=== PATIENT | female | born 1945 | race African-American/Black ===

== ENCOUNTER 2016-05-03 18:45 | Inpatient (IN) | payer OTHER, MEDICARE ==
[~2016-05-03] VITALS: Ht 160 cm; Wt 117.9 kg
--- NOTE | ~2016-05-03 | EKG ---
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1945 Requested By: Syed Pham Order Number: [id number] MD: Edmundo Henson Measurements Intervals [place] Rate: 66 P: 47 PA: 209 QRS: -41 QRSD: 109 T: 15 QT: 403 QTc: 423 Interpretive Statements Sinus rhythm Left anterior fascicular block Abnormal R-wave progression, late transition Left ventricular hypertrophy No previous ECG available for comparison Electronically Signed On 05-04-2016 8:53:32 SEATER GRINDER by Edmundo Henson [email or web address] <ELECTRONICALLY SIGNED> By: Edmundo Henson MD, [facility] 05/04/16 0853 23 23 Edmundo Henson MD, [facility] /EPI
--- NOTE | ~2016-05-03 | 2DMMODE ---
[facility] [place] [address] 2 D/M-MODE ECHOCARDIOGRAM Name: SANCHEZ DUDLEY Room #: 450-P [facility] IN ..#: [id number] Admission: 05/03/16 Attend Phys: Blossom Stone Discharge: Date of : 43 Date of Service: 05/04/16 0838 Report #: [id number] THIS REPORT FOR: //name// Transthoracic Echocardiography Ordering physician: Marilynn Barajas Referring physician: Demi Martinez Theresa L. Marble Coper: TABITHA Fontenot Indications/History: DM, HLP, HTN. BP: 152 / HR: 57bpm Height: 62in Weight: 259.5lb 62 Study data: M-mode, complete 2D, complete spectral Doppler, and color Doppler. Location: Bedside. Routine. Image quality was good. 2D measurements Normal Normal LVID ED 53.9mm 36-57 IVS ED 10.3mm 6-11 LVID ES 33.9mm 23-40 LVPW ED 9mm 6-11 LA volume 33ml/m2 16-28 AoRoot diam 31.1mm 21-37 index ED LVOT diameter 23mm 18-23 Findings: Left ventricle: The cavity size was normal. Wall thickness was normal. Systolic function was normal. The estimated ejection fraction was in the range of 55% to 60%. Wall motion was normal. Right ventricle: The cavity size was normal. Systolic function was normal. Right atrium: The atrium was at the upper limits of normal in size. Left atrium: The atrium was at the upper limits of normal in size. Volume index: 33ml/m2 (S). Aortic valve: Trileaflet; mildly calcified leaflets. Doppler: There was no stenosis. No regurgitation. Peak velocity: 142.2cm/s (S). [facility] [address] [place] [address] 2 D/M-MODE ECHOCARDIOGRAM Name: SANCHEZ DUDLEY Room #: 450-P [facility] M.R.#: [id number] Admission: 05/03/16 Attend Phys: Blossom Stone Discharge: Date of : 43 Date of Service: 05/04/16 0838 Report #: [id number] Mitral valve: Mildly calcified annulus. Doppler: There was no evidence for stenosis. Trivial regurgitation. Peak E-wave velocity: 89.4cm/s. Peak gradient: 3.2mm Hg (D). Peak A-wave velocity: 81.3cm/s. Tricuspid valve: Structurally normal valve. Doppler: There was no evidence for stenosis. Trivial regurgitation. Regurgitant peak velocity: 259.9cm/s. Peak RV-RA gradient: 27mm Hg (S). Pulmonic valve: Structurally normal valve. Doppler: There was no evidence for stenosis. No regurgitation. Pericardium: There was no pericardial effusion. Aorta: Aortic root: The aortic root was normal in size. Pulmonary artery: Systolic pressure was estimated to be 37mm Hg. Systemic veins: Inferior vena cava: The vessel was dilated; the respirophasic diameter changes were in the normal range (= 50%). Conclusions 1. Left ventricle: The cavity size was normal. Wall thickness was normal. Systolic function was normal. The estimated ejection fraction was in the range of 55% to 60%. 2. Right atrium: The atrium was at the upper limits of normal in size. 3. Left atrium: The atrium was at the upper limits of normal in size. 4. Aortic valve: Trileaflet; mildly calcified leaflets. There was no stenosis. 5. Mitral valve: Mildly calcified annulus. Trivial regurgitation. 6. Tricuspid valve: Trivial regurgitation. 7. Pericardium, extracardiac: There was no pericardial effusion. <ELECTRONICALLY SIGNED> By: Cesar Miranda MD 05/04/16 1030 0838 Cesar Miranda MD /debra
[2016-05-03 18:45] VITALS: BP 132/103
[~2016-05-03 18:45] MED LIST: ADULT LOW DOSE81 MG PO; BENZONATATE200 MG PO; BOSENTAN PO; CARVEDILOL12.5 MG PO; CARVEDILOL25 MG PO; COLACE100 MG PO; CRESTOR5 MG PO; EYE ITCH RELIEF5 ML OPHTHALMIC; FEVERALL JR 32325 MG RECTAL; FIBER LAX625 MG PO; GLUCOPHAGE1000 MG PO; JANUVIA100 MG PO; LANSOPRAZOLE30 MG PO; LO-DOSE ASPIRIN81 M1; LOPERAMIDE 2 MG2 M1 PO; LORTAB 5 MG/5001 TA1 PO; LOSARTAN-HCTZ1 EAC1 PO; MOM PO; NIFEDIPINE ER90 M1 PO; POTASSIUM CHLO10 ME1 PO; TRACLEER125 MG; TRACLEER125 MG PO; VITAMIN B-12500 MCG PO
[2016-05-03] MEDS ORDERED: CRESTOR10 MG PO (18:59)
[2016-05-03] MEDS ORDERED: PANTOPRAZOLE SO40 M1 PO (19:01)
[2016-05-03 19:15] LABS: ABSOLUTE NEUTROPHILS 5.9 thou/uL (1.4-8.2); BASOPHILS 0.6 % (0.0-2.0); EOSINOPHILS 0.8 % (0.0-3.0); HEMATOCRIT 34.1 % (37.0-47.0); HEMOGLOBIN 11.1 gm/dL (12.0-15.0); LYMPHOCYTES 12.7 % (24.0-44.0); MCH 25.3 pg (26.0-34.0); MCHC 32.6 % (28.0-37.0); MCV 77.6 fL (80.0-100.0); MONOCYTES 8.7 % (1.0-8.0); PLATELET COUNT 223 thou/uL (150-400); POLYS 77.2 % (36.0-66.0); RBC 4.39 mil/uL (4.20-5.00); RDW 15.7 % (10.5-14.5); WBC 7.7 thou/uL (4.0-11.0)
[2016-05-03 19:16] LABS: MANUAL DIFF NO
[2016-05-03 19:22] LABS: CALCIUM 9.2 mg/dL (8.5-10.1)
[2016-05-03 19:28] LABS: ALBUMIN 3.5 g/dL (3.4-5.0); TOTAL BILIRUBIN 0.5 mg/dL (<0.1-1.0); TOTAL PROTEIN 7.6 g/dL (6.4-8.2)
[2016-05-03 20:33] VITALS: BP 157/58; BP 161/67
[2016-05-03 20:49] LABS: NT-PRO BRAIN NAT PEPTIDE 214 pg/mL (<300); TROPONIN-I < 0.04 ng/mL (<0.04-0.07)
[2016-05-03 20:54] VITALS: BP 151/55
[2016-05-04 00:20] VITALS: BP 128/50
[2016-05-04 04:24] VITALS: BP 129/45
[2016-05-04 07:15] VITALS: BP 152/62
[2016-05-04 08:15] LABS: HEMATOCRIT 32.7 % (37.0-47.0); HEMOGLOBIN 10.7 gm/dL (12.0-15.0); MCH 25.3 pg (26.0-34.0); MCHC 32.7 % (28.0-37.0); MCV 77.4 fL (80.0-100.0); RBC 4.23 mil/uL (4.20-5.00); RDW 15.7 % (10.5-14.5); WBC 5.5 thou/uL (4.0-11.0)
[2016-05-04 08:18] LABS: CREATININE 0.8 mg/dL (0.6-1.3); MAGNESIUM 2.2 mg/dL (1.8-2.4); POTASSIUM 3.5 mmol/L (3.5-5.1)
[2016-05-04 12:44] VITALS: BP 111/39
[2016-05-04 17:11] LABS: TSH 0.477 uIU/mL (0.450-4.500)
[2016-05-04 19:10] VITALS: BP 143/65
[2016-05-04 21:06] LABS: GLYCOHEMOGLOBIN (HGB A1C) 6.2 % (4.8-5.6)
[2016-05-05 03:57] VITALS: BP 146/65
[2016-05-05 09:08] VITALS: BP 183/67
[2016-05-05] MEDS ORDERED: OSELB75 PO (10:09)
[2016-05-05 11:19] VITALS: BP 183/67
== END 2016-05-05 11:40 | disposition home or self-care (01) | DRG 193 ==
LOC: ER 18:45 → EROBS 20:27 → 4W 20:40
PROVIDERS: Emergency Medicine; Nurse Practitioner
DX: J10.1 Influenza due to other identified influenza virus with other respiratory manifestations (principal); I50.33 Acute on chronic diastolic (congestive) heart failure; D64.9 Anemia, unspecified; E87.6 Hypokalemia; E11.9 Type 2 diabetes mellitus without complications; F32.9 Major depressive disorder, single episode, unspecified; G47.30 Sleep apnea, unspecified; E78.5 Hyperlipidemia, unspecified; I11.0 Hypertensive heart disease with heart failure; I27.2 Other secondary pulmonary hypertension; Z82.49 Family history of ischemic heart disease and other diseases of the circulatory system; Z90.49 Acquired absence of other specified parts of digestive tract; Z90.710 Acquired absence of both cervix and uterus; Z79.82 Long term (current) use of aspirin; Z79.899 Other long term (current) drug therapy; Z82.3 Family history of stroke
CPT/HCPCS: 10040

== ENCOUNTER → 2016-08-30 | Outpatient (CLI) | payer OTHER, MEDICARE ==
[~2016-08-30] MED LIST changes: +CRESTOR10 MG PO; +OSELB75 PO; +PANTOPRAZOLE SO40 M1 PO
== END ==
LOC: CAT 10:48
DX: R91.1 Solitary pulmonary nodule (principal); R06.02 Shortness of breath; R06.00 Dyspnea, unspecified

== ENCOUNTER 2017-07-27 00:57 | Inpatient (IN) | payer OTHER ==
[~2017-07-27] VITALS: Ht 160 cm; Wt 117.9 kg
[2017-07-27] VITALS (7 sets, daily range): BP systolic 130–182; BP diastolic 46–91
[2017-07-27 02:06] LABS: ABSOLUTE NEUTROPHILS 5.2 thou/uL (1.4-8.2); BASOPHILS 1.2 % (0.0-2.0); EOSINOPHILS 0.2 % (0.0-3.0); HEMATOCRIT 34.6 % (37.0-47.0); HEMOGLOBIN 11.3 gm/dL (12.0-15.0); LYMPHOCYTES 14.4 % (24.0-44.0); MCH 25.5 pg (26.0-34.0); MCHC 32.7 g/dL (28.0-37.0); MCV 77.9 fL (80.0-100.0); MONOCYTES 5.5 % (1.0-8.0); PLATELET COUNT 275 thou/uL (150-400); POLYS 78.7 % (36.0-66.0); RBC 4.44 mil/uL (4.20-5.00); WBC 6.6 thou/uL (4.0-11.0)
[2017-07-27 02:11] LABS: ANION GAP 8 mmol/L (7-16); BUN 15 mg/dL (7-18); CALCIUM 9.5 mg/dL (8.5-10.1); CHLORIDE 101 mmol/L (98-107); CO2 28 mmol/L (21-32); CREATININE 0.9 mg/dL (0.6-1.0); GLUCOSE 180 mg/dL (74-106); POTASSIUM 3.4 mmol/L (3.5-5.1); SODIUM 137 mmol/L (136-145)
[2017-07-27 02:15] LABS: ALBUMIN 3.4 g/dL (3.4-5.0); DIRECT BILIRUBIN < 0.1 mg/dL (<0.1-0.3); LIPASE 76 U/L (73-393); SGOT 12 U/L (15-37); SGPT 18 U/L (30-65); TOTAL BILIRUBIN 0.3 mg/dL (<0.1-1.0); TOTAL PROTEIN 7.6 g/dL (6.4-8.2)
[2017-07-27] MEDS ORDERED: MIRALAX17 GM PO (09:55)
[2017-07-28 06:08] VITALS: BP 152/60
[2017-07-28 15:40] VITALS: BP 152/60
== END 2017-07-28 17:54 | disposition home or self-care (01) | DRG 388 ==
LOC: ER 00:57 → 4E 04:28 → EROBS 04:28 → 4E 04:42
PROVIDERS: Emergency Medicine
DX: K56.600 Partial intestinal obstruction, unspecified as to cause (principal); E43 Unspecified severe protein-calorie malnutrition; I10 Essential (primary) hypertension; K59.00 Constipation, unspecified; E11.9 Type 2 diabetes mellitus without complications; E78.5 Hyperlipidemia, unspecified; E87.6 Hypokalemia; G47.33 Obstructive sleep apnea (adult) (pediatric); Z79.82 Long term (current) use of aspirin; Z79.84 Long term (current) use of oral hypoglycemic drugs; Z79.899 Other long term (current) drug therapy; Z90.49 Acquired absence of other specified parts of digestive tract; Z90.710 Acquired absence of both cervix and uterus; Z83.3 Family history of diabetes mellitus
CPT/HCPCS: 10783

== ENCOUNTER → 2017-10-18 | Outpatient (CLI) | payer OTHER, MEDICARE ==
[~2017-10-18] MED LIST changes: +MIRALAX17 GM PO
== END ==
LOC: CAT 10:01
DX: R06.00 Dyspnea, unspecified (principal); I70.0 Atherosclerosis of aorta; Z90.49 Acquired absence of other specified parts of digestive tract

== ENCOUNTER 2018-04-10 22:48 | Inpatient (IN) | payer OTHER, MEDICARE ==
[~2018-04-10] VITALS: Ht 160 cm; Wt 118.9 kg
--- NOTE | ~2018-04-10 | EKG ---
[place] [address] [facility] [place] [address] ELECTROCARDIOGRAM REPORT Name: SANCHEZ DUDLEY Room #: 430-P [facility] IN M.R.#: [id number] Admission: 04/11/18 Attend Phys: Blossom Vance Discharge: Date of : 43 Report #: [id number] THIS REPORT FOR: //name// 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1945 Requested By: Laura Deleon Order Number: [id number] MD: Edmundo Henson Measurements Intervals [place] Rate: 51 P: -24 ID: [id number] QRS: -50 QRSD: 125 T: 31 QT: 446 QTc: 411 Interpretive Statements Sinus bradycardia LVH with IVCD, LAD and secondary repol abnrm Compared to ECG 05/03/2016 19:24:08 No significant change was found Electronically Signed On 04-11-2018 8:37:35 SEAMING INSPECTOR by Edmundo Henson [email or web address] <ELECTRONICALLY SIGNED> By: Edmundo Henson MD, [facility] 04/11/18 0837 [id number] [id number] Edmundo Henson MD, [facility] /EPI
[2018-04-10 23:23] VITALS: BP 164/68
[2018-04-10 23:51] LABS: HEMATOCRIT 34.1 % (37.0-47.0); HEMOGLOBIN 11.1 gm/dL (12.0-15.0); MCH 25.3 pg (26.0-34.0); MCHC 32.7 g/dL (28.0-37.0); MCV 77.5 fL (80.0-100.0); RBC 4.4 mil/uL (4.20-5.00); RDW 16.6 % (10.5-14.5)
[2018-04-11 00:07] LABS: ANION GAP 9 mmol/L (7-16); BUN 17 mg/dL (7-18); CALCIUM 9.4 mg/dL (8.5-10.1); CHLORIDE 99 mmol/L (98-107); CO2 30 mmol/L (21-32); GLUCOSE 155 mg/dL (74-106); POTASSIUM 3.1 mmol/L (3.5-5.1); SODIUM 138 mmol/L (136-145)
[2018-04-11 00:15] LABS: ALBUMIN 3.6 g/dL (3.4-5.0); LIPASE 77 U/L (73-393); SGOT 15 U/L (15-37); SGPT 14 U/L (30-65); TOTAL BILIRUBIN 0.3 mg/dL (<0.1-1.0); TROPONIN-I <0.06 ng/mL (<0.06)
[2018-04-11 02:43] VITALS: BP 163/64
[2018-04-11 03:21] VITALS: BP 163/64
[2018-04-11 04:00] VITALS: BP 161/57
[2018-04-11 06:21] LABS: HEMATOCRIT 32.3 % (37.0-47.0); HEMOGLOBIN 10.2 gm/dL (12.0-15.0); MCH 24.7 pg (26.0-34.0); MCHC 31.7 g/dL (28.0-37.0); RBC 4.14 mil/uL (4.20-5.00); RDW 16.9 % (10.5-14.5)
[2018-04-11 06:34] LABS: CALCIUM 8.7 mg/dL (8.5-10.1); CREATININE 0.9 mg/dL (0.6-1.0); POTASSIUM 3.5 mmol/L (3.5-5.1)
[2018-04-11 07:45] VITALS: BP 151/60
[2018-04-11 17:42] VITALS: BP 167/69
[2018-04-12 08:24] VITALS: BP 187/85
[2018-04-12 17:50] VITALS: BP 168/74
[2018-04-12 19:43] VITALS: BP 152/68
[2018-04-13 07:21] LABS: CALCIUM 8.8 mg/dL (8.5-10.1); CREATININE 0.9 mg/dL (0.6-1.0); PHOSPHORUS 2.6 mg/dL (2.5-4.9); POTASSIUM 3.3 mmol/L (3.5-5.1)
[2018-04-13 08:10] VITALS: BP 171/77
[2018-04-13 10:00] VITALS: BP 171/77
== END 2018-04-13 16:53 | disposition home or self-care (01) | DRG 389 ==
LOC: ER 22:48 → EROBS 04-11 02:11 → 4E 04-11 02:11 → SICU 04-11 03:21 → 4E 04-11 03:25 → SICU 04-11 20:28
PROVIDERS: Hospitalist; Nurse Practitioner Family; Student in an Organized Health Care Education/Training Program
DX: K56.51 Intestinal adhesions [bands], with partial obstruction (principal); Z68.42 Body mass index [BMI] 45.0-49.9, adult; E78.5 Hyperlipidemia, unspecified; I10 Essential (primary) hypertension; G47.33 Obstructive sleep apnea (adult) (pediatric); E87.6 Hypokalemia; K21.9 Gastro-esophageal reflux disease without esophagitis; E11.9 Type 2 diabetes mellitus without complications; E66.01 Morbid (severe) obesity due to excess calories; I27.20 Pulmonary hypertension, unspecified; Z79.899 Other long term (current) drug therapy; Z90.710 Acquired absence of both cervix and uterus; Z90.49 Acquired absence of other specified parts of digestive tract; Z83.3 Family history of diabetes mellitus
CPT/HCPCS: 15000

== ENCOUNTER → 2018-10-14 | Outpatient (CLI) | payer OTHER, MEDICARE ==
--- NOTE | 2018-10-14 16:47 | 2DMMODE ---
[facility] [address] [place] [address] 2 D/M-MODE ECHOCARDIOGRAM Name: SANCHEZ DUDLEY [facility]: [facility] [id number] ������������� Admission: 10/14/18 ������������� Attend Phys: Neha Abernathy Discharge: ��� ������������� ��� Date of : 43 Date of Service: 10/14/18 1647 �� Report #: [id number] �������� ��������������������������������������������[id number] THIS REPORT FOR: //name// APPROVED REPORT Study performed: 10/14/2018 12:58:41 EXAM: Comprehensive 2D, Doppler, and color-flow Echocardiogram Patient Location: Echo lab Room #: Outpatient Status: routine BSA: 2.09 HR: 56 bpm BP: 122/60 mmHg Rhythm: NSR Other Information Study Quality: Good Risk Factors: Cardiac Risk Factors: HTN, Hyperlipidemia, DM Indications Dyspnea CAD 2D Dimensions IVSd: 11.57 (7-11mm) LVOT Diam: 20.00 (18-24mm) LVDd: 45.97 mm PWd: 11.31 (7-11mm) Ascending Ao: 35.20 (22-36mm) LVDs: 32.09 (25-40mm) Aortic Root: 30.77 mm LV Single Plane 4CH: 58.83 % LV Single Plane 2CH: 63.64 % Biplane EF: 61.3 % Volumes Left Atrial Volume (Systole) Single Plane 4CH: 58.97 mL Single Plane 2CH: 56.52 mL LA ESV Index: 31.00 mL/m2 Aortic Valve AoV Peak Sawyer.: 1.47 m/s AO Peak Gr.: 8.63 mmHg LVOT Max P.60 mmHg LVOT Max V: 1.07 m/s [facility] [place] [address] 2 D/M-MODE ECHOCARDIOGRAM Name: SANCHEZ DUDLEY Room #: [facility]#: [id number] ������������� Admission: 10/14/18 ������������� Attend Phys: Neha Abernathy Discharge: ��� ������������� ��� Date of : 43 Date of Service: 10/14/18 1647 �� Report #: [id number] �������� ��������������������������������������������[id number] ADY Vmax: 2.25 cm2 Mitral Valve E/A Ratio: 0.7 MV Decel. Time: 259.01 ms MV E Max Sawyer.: 0.64 m/s MV A Sawyer.: 0.87 m/s MV PHT: 75.11 ms IVRT: 92.27 ms TDI E/Lateral E': 8.00 E/Medial E': 12.80 Medial E' Sawyer.: 0.05 m/s Lateral E' Sawyer.: 0.08 m/s Pulmonary Valve PV Peak Sawyer.: 1.23 m/s PV Peak Gr.: 6.09 mmHg Pulmonary Vein P Vein S: 0.45 m/s P Vein A: 0.24 m/s P Vein D: 0.29 m/s P Vein A Dur.: 138.4 msec P Vein S/D Ratio: 1.55 Tricuspid Valve TR Peak Sawyer.: 2.48 m/s RAP Estimate: 7.00 mmHg TR Peak Gr.: 24.55 mmHg PA Pressure: 32.00 mmHg Left Ventricle The left ventricle is normal size. There is normal LV segmental wall motion. Mild concentric left ventricular hypertrophy. Left ventricular systolic function is normal. The left ventricular ejection fraction is within the normal range. LVEF is 55-60%. Mild diastolic dysfunction is present (impaired relaxation pattern). Right Ventricle The right ventricle is normal size. The right ventricular systolic function is normal. Atria The left atrium size is normal. The right atrium size is normal. Aortic Valve The aortic valve is normal in structure. No aortic regurgitation is [address] [address] 2 D/M-MODE ECHOCARDIOGRAM Name: SANCHEZ DUDLEY Room #: REG CL [facility]#: [id number] ������������� Admission: 10/14/18 ������������� Attend Phys: Neha Abernathy Discharge: ��� ������������� ��� Date of : 43 Date of Service: 10/14/18 1647 �� Report #: [id number] �������� ��������������������������������������������[id number] present. There is no aortic valvular stenosis. Mitral Valve The mitral valve is normal in structure. Trace to mild mitral regurgitation. No evidence of mitral valve stenosis. Tricuspid Valve The tricuspid valve is normal in structure. Mild tricuspid regurgitation. Pulmonary artery pressure is 30 mmHg. Pulmonic Valve The pulmonary valve is normal in structure. Mild pulmonic regurgitation. Great Vessels The aortic root is normal in size. The ascending aorta is normal in size. IVC is normal in size and collapses >50% with inspiration. Pericardium There is no pericardial effusion. <Conclusion> Left ventricular systolic function is normal. There is normal LV segmental wall motion. LVEF is 55-60%. Mild diastolic dysfunction The aortic valve is normal in structure. No aortic regurgitation or stenosis The mitral valve is normal in structure. Trace to mild mitral regurgitation. Mild tricuspid regurgitation. Pulmonary artery pressure of 30 mmHg. There is no pericardial effusion. ��������������������������������������������� <ELECTRONICALLY SIGNED> ���������������������������������������� By: Edmundo Henson MD, FACC ��������������������������������������������� 10/14/181646 46 46 Edmundo Henson MD, FACC /INF
== END ==
LOC: CV 10:39
DX: I08.8 Other rheumatic multiple valve diseases (principal); R91.1 Solitary pulmonary nodule; I27.29 Other secondary pulmonary hypertension

== ENCOUNTER 2019-03-17 17:35 | Emergency (ER) | payer OTHER, MEDICARE ==
[~2019-03-17] VITALS: Ht 160 cm; Wt 99.8 kg
[2019-03-17] MEDS ORDERED: NORFLEX100 MG PO (20:15)
[2019-03-17] MEDS ORDERED: IBUPROFEN 600600 M1 PO (20:15)
[2019-03-17 20:40] VITALS: BP 187/72
== END 2019-03-17 20:41 | disposition home or self-care (01) ==
LOC: ER 17:35
DX: S39.012A Strain of muscle, fascia and tendon of lower back, initial encounter (principal); S16.1XXA Strain of muscle, fascia and tendon at neck level, initial encounter; I10 Essential (primary) hypertension; E11.9 Type 2 diabetes mellitus without complications; G47.30 Sleep apnea, unspecified; Z90.49 Acquired absence of other specified parts of digestive tract; E78.5 Hyperlipidemia, unspecified; Z90.710 Acquired absence of both cervix and uterus; V89.2XXA Person injured in unspecified motor-vehicle accident, traffic, initial encounter; Y92.89 Other specified places as the place of occurrence of the external cause; Y93.89 Activity, other specified; Y99.8 Other external cause status

== ENCOUNTER → 2019-03-28 | Outpatient (CLI) | payer OTHER, MEDICARE ==
[~2019-03-28] MED LIST changes: +IBUPROFEN 600600 M1 PO; +NORFLEX100 MG PO
== END ==
LOC: CAT 10:11
DX: J47.9 Bronchiectasis, uncomplicated (principal); R91.1 Solitary pulmonary nodule; J98.4 Other disorders of lung; J98.11 Atelectasis; I51.7 Cardiomegaly